=== PATIENT | male | born 1975 | race Caucasian/White ===

== ENCOUNTER 2025-02-18 13:14 | Emergency (ER) | payer OTHER, SELFPAY ==
--- NOTE | ~2025-02-18 | XR_ITS ---
EXAMINATION: XR LUMBAR SPINE 2-3 VIEWS HISTORY: back pain COMPARISON: There are no prior studies for comparison. FINDINGS: AP, lateral, and coned down views of the lumbar spine are submitted. Osseous mineralization is normal. Five nonrib-bearing lumbar vertebral bodies are identified, maintaining normal height and alignment without evidence of fracture or spondylolisthesis. There is moderate degenerative disc disease at L5-S1 with disc space narrowing, osteophyte formation, vacuum phenomenon. Milder changes are noted at the remaining levels. The posterior elements are intact. The visualized paraspinal soft tissues are unremarkable. XR/XR lumbar spine 2-3V IMPRESSION: Degenerative changes of the lumbar spine as described. Electronically signed by: Froy Chow MD 02/18/2025 01:40 PM EDT
[2025-02-18 13:21] VITALS: BP 124/95; PULSE 87; RESP 16; TEMP 36.6; O2SAT 97; BMI 26.5
--- NOTE | 2025-02-18 13:22 | ED.BACK ---
HPI - Back Pain/Injury General Chief Complaint: Back Pain/Injury Stated Complaint: back inj at work Time Seen by Provider: 02/18/25 14:12 Source: patient and RN notes reviewed Mode of arrival: ambulatory Limitations: no limitations History of Present Illness ED Provider: Fidelina Magana PA-C HPI Narrative: This is a [id number]-male, with a hx of asthma, who presents to the Er with a complaint of acute on chronic low back pain since this morning. Pt states that he was moving a small piece of metal at work this morning and went to stand up and felt pain in his back. Pain radiates down his right buttocks. No saddle anethesia. No urinary or bowel retention or incontinence. Denies taking any medications for the pain. No urinary sxs. No fevers, chills, chest pain, SOB, abdominal pain, N/V/D. No hx of IVDA No other complaints or concerns at this time. MD elicited complaint: back pain Pertinent past history: prior back pain Onset (ago): hour(s) Timing: constant Severity: moderate Similar Symptoms Previously: Yes Quality: aching and spasming Location: lumbar spine Radiation: right upper leg Exacerbating factors: movement Relieving factors: immobilization Context: turning/twisting Associated symptoms: denies other symptoms Work related injury: Yes Related Data Previous Rx's ?Medication ?Instructions ?Recorded acetaminophen 500 mg tablet 1,000 mg (2 x 500 mg) PO Q8H PRN 02/18/25 (Tylenol Extra Strength) pain #30 tabs cyclobenzaprine 10 mg tablet 10 mg PO TID #12 tabs 02/18/25 ibuprofen 600 mg tablet 600 mg PO Q6H PRN pain #30 tabs 02/18/25 lidocaine 4 % topical patch 1 patch topical DAILY PRN pain #30 02/18/25 (AsperFlex (lidocaine)) ea Allergies Allergy/AdvReac Type Severity Reaction Status Date / Time No Known Allergies Allergy Verified 02/18/25 13:22 [No Known Allergies*] Review of Systems Review of Systems: Yes all other systems are reviewed and are negative Constitutional: Constitutional: Reports as per [facility] Social History Social History Advance Directives: No Advance Directives Information Provided: Yes Physical Exam Vital Signs: Vital Signs: Last Vital Signs Temp 98 F 02/18/25 14:52 Pulse 87 02/18/25 14:52 Resp 16 02/18/25 14:52 BP 124/95 H 02/18/25 14:52 Pulse Ox 97 02/18/25 14:52 O2 Del Method Room Air 02/18/25 13:21 BMI result Body Mass Index 26.5 Const: General: cooperative, comfortable and no acute distress Orientation/consciousness: patient oriented x3 Limitations: no limitations HEENT: Head: Yes normal to inspection, Yes normocephalic and Yes atraumatic Ears: hearing grossly normal bilaterally General nose exam: Normal external nose present Face and sinus: Yes normal facial exam Mouth: Normal oral and palatal mucosa present, oropharynx normal and moist mucous membranes Throat: Yes posterior oropharynx normal Eyes: General: appearance normal, both eyes and all related structures Eyelids: Yes eyelids normal Conjunctivae: conjunctivae normal Sclerae: sclerae normal Pupils: Equal, round and reactive pupils present EOM: EOMs intact bilaterally Neck: Neck: Yes normal visual inspection, Yes full ROM and Yes no lymphadenopathy Lymphatic: no lymphadenopathy noted Chest: Chest palpation & inspection: normal inspection of the chest Resp: Effort & Inspection: normal respiratory effort and able to speak in complete sentences Auscultation: clear to auscultation bilaterally, no crackles, no rales, no rhonchi and no wheezes Cardio: Rate: regular rate Rhythm: regular rhythm Heart sounds: S1 normal heart sound present and S2 normal heart sound present GI: Inspection: Yes normal to inspection Back/Spine/Pelvis: Other: TTP overlying the BL lumbar paraspinous muscles. Steady gait. DTR 2+, sensation intact. No peripheral edema. Skin: General skin exam: no rashes or lesions noted Trauma: no lacerations or abrasions Wounds: no wounds Neuro: General: patient oriented x3 and moves all extremities Cranial nerves: Yes Equal, round and reactive pupils present Extrem: General: Yes normal to inspection Right upper extremity: normal to inspection Left upper extremity: normal to inspection Right lower extremity: normal to inspection Left lower extremity: normal to inspection Course Reevaluation(s) Reevaluation #1: xrays show degenerative changes. discussed w/ patient, will treat as lumbar radiculopathy. Given return precautions. Stable for d/c. Medical Decision Making Medical Decision Making MDM Narrative: This is aa [id number]-male who presents to the ER with back pain. This patient presents with back pain most consistent with lumbar radiculopathy. Differential diagnoses includes lumbago versus musculoskeletal spasm / strain versus sciatica. No back pain red flags on history or physical. Presentation not consistent with malignancy (lack of history of malignancy, lack of B symptoms), fracture (no trauma, no bony tenderness to palpation), cauda equina syndroome (no bowel or urinary incontinence/retention, no saddle anesthesia, no distal weakness), AAA, viscus perforation , pulmonary embolism, renal colic, pyelonephritis (afebrile, no CVAT, no urinary symptoms). xrays ordered Differential Diagnosis Differential Diagnoses: The differential diagnosis associated with the presentation includes see above Radiology Impression Discussion of test interpretation with radiology: I have reviewed the radiologist's reading. Radiologist Impression: [address] [address] XRay Report Signed Patient: Michela Martinez MR#: [id number] : 1975 Acct:[id number] Age/Sex: 49 / M ADM Date: 02/18/25 Loc: .ED Attending Dr: Ordering Physician: Fidelina Magana Date of Service: 02/18/25 Procedure(s): XR lumbar spine 2-3V Accession Number(s): [id number] cc: Fidelina Magana; Physician,Unknown ~ EXAMINATION: XR LUMBAR SPINE 2-3 VIEWS HISTORY: back pain COMPARISON: There are no prior studies for comparison. FINDINGS: AP, lateral, and coned down views of the lumbar spine are submitted. Osseous mineralization is normal. Five nonrib-bearing lumbar vertebral bodies are identified, maintaining normal height and alignment without evidence of fracture or spondylolisthesis. There is moderate degenerative disc disease at L5-S1 with disc space narrowing, osteophyte formation, vacuum phenomenon. Milder changes are noted at the remaining levels. The posterior elements are intact. The visualized paraspinal soft tissues are unremarkable. XR/XR lumbar spine 2-3V IMPRESSION: Degenerative changes of the lumbar spine as described. Electronically signed by: Froy Chow MD 02/18/2025 01:40 PM EDT RP Dictated By: Froy Chow MD Discharge Plan Discharge Clinical Impression: Acute left lumbar radiculopathy Patient Disposition: Home, Self-Care Instructions: Acute Low Back Pain (ED), Lumbar Radiculopathy (ED), Back Pain (ED) Additional Instructions: You were seen in the emergency department due to back pain. You have degenerative changes in your back. You have a condition called lumbar radiculopathy also known as sciatica. Please take prescribed medication as directed. Prednisone as an anti-inflammatory/steroid please take this as prescribed. Alternate between ibuprofen and Tylenol. Do not mix ibuprofen with any other anti-inflammatory such as Motrin, Aleve. You may take muscle relaxants as prescribed, Flexeril as a muscle relaxants and can cause drowsiness, do not drink alcohol or drive while taking this medication. Gentle stretching, heat or ice can also help. You may also apply Lidoderm patches to your skin were your back pain is the worst. Please be advised that you should not apply any warm compresses or ice to the area. If any new or worsening symptoms occur including but not limited to worsening pain, severe chest pain, shortness of breath, please seek emergent care. Prescriptions: New ibuprofen 600 mg tablet 600 mg PO Q6H PRN (Reason: pain) Qty: 30 0RF acetaminophen [Tylenol Extra Strength] 500 mg tablet 1,000 mg PO Q8H PRN (Reason: pain) Qty: 30 0RF cyclobenzaprine 10 mg tablet 10 mg PO TID Qty: 12 0RF lidocaine [AsperFlex (lidocaine)] 4 % adhesive patch,medicated 1 patch topical DAILY PRN (Reason: pain) Qty: 30 0RF Referrals: [facility] [Physician] - Stand Alone Forms: Work/School Release Interventions: ED Discharge Assessment Last Done: 02/18/25 14:52 Discharge Date/Time: 02/18/25 14:54 Print Language: Tuvaluan
[2025-02-18 14:52] VITALS: BP 124/95; PULSE 87; RESP 16; TEMP 36.6; O2SAT 97
== END 2025-02-18 14:54 | disposition home or self-care (01) ==
PROVIDERS: Emergency Provider Emergency Medicine
DX: M54.16 Radiculopathy, lumbar region (principal); M54.50 Low back pain, unspecified
CPT/HCPCS: 72100; 99282; 99283

== ENCOUNTER → 2025-02-18 13:25 | Outpatient (BNV) | payer SELFPAY | PROVIDERS: Visit Provider Radiology Diagnostic Radiology | DX: M51.360 Other intervertebral disc degeneration, lumbar region with discogenic back pain only (principal) | CPT/HCPCS: 72100 ==

== ENCOUNTER 2025-10-18 12:15 | Emergency (ER) | payer OTHER, SELFPAY ==
[2025-10-18 12:42] VITALS: BP 125/69; PULSE 60; RESP 16; TEMP 36.5; O2SAT 97; BMI 26.6
--- NOTE | 2025-10-18 12:49 | ED.GENADULT ---
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 Related Data Previous Rx's ?Medication ?Instructions ?Recorded acetaminophen 500 mg tablet 1,000 mg (2 x 500 mg) PO Q8H PRN 02/18/25 (Tylenol Extra Strength) pain #30 tabs cyclobenzaprine 10 mg tablet 10 mg PO TID #12 tabs 02/18/25 ibuprofen 600 mg tablet 600 mg PO Q6H PRN pain #30 tabs 02/18/25 lidocaine 4 % topical patch 1 patch topical DAILY PRN pain #30 02/18/25 (AsperFlex (lidocaine)) ea Allergies Allergy/AdvReac Type Severity Reaction Status Date / Time No Known Allergies (No Known Allergy Verified 10/18/25 12:43 Allergies*) PMFSH Social History Social History Advance Directives: No Advance Directives Information Provided: No Physical Exam ED Vital Signs: Vital Signs - 24 hr 10/18/25 12:42 Temperature 97.7 F Pulse Rate 60 Respiratory Rate 16 Blood Pressure 125/69 Pulse Oximetry 97 Oxygen Delivery Method Room Air BMI result Body Mass Index 26.6 Course Course Course Narrative: RME: 50 yold male presents to the ED for right eye irratation after draino went into right last night at home. patient sent from job for evaluation this morning. Right has some draiange. patient states slight blurry vsision. Discharge Plan Discharge Clinical Impression: Acute eye pain Patient Disposition: Left W/O Completing Treatment Prescriptions: No Action ibuprofen 600 mg tablet 600 mg PO Q6H PRN (Reason: pain) Qty: 30 0RF acetaminophen [Tylenol Extra Strength] 500 mg tablet 1,000 mg PO Q8H PRN (Reason: pain) Qty: 30 0RF cyclobenzaprine 10 mg tablet 10 mg PO TID Qty: 12 0RF lidocaine [AsperFlex (lidocaine)] 4 % adhesive patch,medicated 1 patch topical DAILY PRN (Reason: pain) Qty: 30 0RF Discharge Date/Time: 10/18/25 18:09
== END 2025-10-18 18:09 | disposition left against medical advice (07) ==
LOC: HO.ED 17:55
PROVIDERS: Emergency Provider Emergency Medicine
DX: H57.11 Ocular pain, right eye (principal)
CPT/HCPCS: 99281